=== PATIENT | female | born 1985 | race Caucasian/White ===

== ENCOUNTER 2021-04-11 17:20 | Emergency (ER) | payer OTHER ==
[~2021-04-11] VITALS: Ht 167.6 cm; Wt 113.4 kg
[2021-04-11 18:14] VITALS: BP 125/70
== END 2021-04-11 18:15 | disposition home or self-care (01) ==
LOC: M.ERS 17:20
DX: H57.11 Ocular pain, right eye (principal); Z77.098 Contact with and (suspected) exposure to other hazardous, chiefly nonmedicinal, chemicals; Z98.890 Other specified postprocedural states